=== PATIENT | female | born 1965 ===

== ENCOUNTER 2019-05-10 16:12 | Emergency (ER) | payer OTHER ==
[~2019-05-10] VITALS: Ht 165.1 cm; Wt 100.0 kg
[2019-05-10 17:20] LABS: BASO # 0.1 (0.0-0.2); BASO % 0.8 % (0.0-2.0); EOS # 0.2 (0.0-0.7); EOS % 2.6 % (0-4.0); GRAN # 3.9 (1.4-6.5); GRAN % 63.2 % (42.2-75.2); HEMATOCRIT 41.6 % (37.0-47.0); HEMOGLOBIN 13.5 g/dl (12.5-16.0); LYMPH # 1.6 (1.2-3.4); MEAN CELL VOLUME 97 fl (80.0-100.0); MEAN CORPUSCULAR HEMOGLOBIN 31 pg (27.0-31.0); MEAN CORPUSCULAR HGB CONC 33 g/dl (33.0-37.0); MEAN PLATELET VOLUME 9.4 fl (7.4-10.4); MONO # 0.4 (0.1-0.6); MONO % 7.1 % (1.7-9.3); PLATELET COUNT 344 K/mm3 (130-400); RED BLOOD COUNT 4.31 M/mm3 (4.10-5.30); REDCELL DISTRIBUTION WIDTH-CV 12.3 % (11.5-14.5)
[2019-05-10 17:32] LABS: ALBUMIN 4.6 gm/dL (3.5-5.0); BILIRUBIN,TOTAL 0.4 mg/dL (0.0-1.0); CALCIUM 9.7 mg/dL (8.4-10.2); CREATININE, serum 0.63 (0.52-1.25); TOTAL PROTEIN 8.3 gm/dL (6.4-8.2)
[2019-05-10 17:33] LABS: C-REACTIVE PROTEIN 0.5 mg/dL (0.0-0.9)
[2019-05-10 18:00] VITALS: BP 121/77; PULSE 66
== END 2019-05-10 18:06 | disposition home or self-care (01) ==
LOC: COL.ER 16:12
PROVIDERS: Family Medicine
DX: R55 Syncope and collapse (principal)
CPT/HCPCS: J2405; J7030

== ENCOUNTER 2023-06-10 22:52 | Emergency (ER) | payer OTHER ==
[~2023-06-10] VITALS: Ht 165.1 cm; Wt 88.2 kg
[2023-06-10 22:54] VITALS: TEMP 98.4
[2023-06-11 00:21] VITALS: BP 117/86; PULSE 78
== END 2023-06-11 00:21 | disposition home or self-care (01) ==
LOC: COL.ER 22:52
DX: M25.522 Pain in left elbow (principal); M25.512 Pain in left shoulder; M79.642 Pain in left hand; W01.10XA Fall on same level from slipping, tripping and stumbling with subsequent striking against unspecified object, initial encounter; Y93.01 Activity, walking, marching and hiking